=== PATIENT | male | born 1935 | race Caucasian/White ===

== ENCOUNTER → 2021-06-07 | Outpatient (REF) | payer OTHER, MEDICARE ==
[2021-06-07 18:29] LABS: MAGNESIUM LEVEL 1.9 MG/DL (1.8-2.4); PERCENT SATURATION 20.1 % (19.7-50.0)
== END ==
LOC: M LAB REF 16:42
PROVIDERS: ATTEND Internal Medicine Nephrology
DX: N18.32 Chronic kidney disease, stage 3b (principal); I12.9 Hypertensive chronic kidney disease with stage 1 through stage 4 chronic kidney disease, or unspecified chronic kidney disease; R60.0 Localized edema; D63.1 Anemia in chronic kidney disease

== ENCOUNTER → 2021-06-15 | Outpatient (CLI) | payer OTHER, MEDICARE ==
--- NOTE | 2021-06-15 11:28 | REP ---
INDICATION: CKD STAGE 3B, BPH. COMPARISON: None. TECHNIQUE: Real-time sonographic evaluation of the urinary bladder. Transvesical technique with Doppler. FINDINGS: The pre void urinary bladder volume calculation is 75 cc and the postvoid urinary bladder volume calculation is 15 cc. This renders a 20% postvoid residual. No gross abnormalities were identified. Uro jet phenomena was seen only on the left. IMPRESSION: As above <Electronically signed by Greg Ojeda > 06/15/21 [id number]
--- NOTE | 2021-06-15 11:39 | REP ---
INDICATION: CKD STAGE 3B, BPH. COMPARISON: None. TECHNIQUE: Real-time sonographic evaluation of the kidneys with Doppler FINDINGS: Multiple ultrasonographic images of the right kidney show the right kidney to measure 9 x 4.4 x 5.5 cm. The renal cortical echotexture is diffusely increased. There is renal cortical thinning there is a 14 x 10.8 x 18.1 cm sized anechoic structure which is arising from or abutting the superior pole and exhibits posterior wall enhancement and increased through transmission. There is poor corticomedullary differentiation. There is no hydronephrosis. There are no perinephric fluid collections. Multiple ultrasonographic images of the left kidney show the left kidney to measure 13.5 x 7.1 x 6.8 cm. The renal cortical echotexture is diffusely increased. There is renal cortical thinning there are 3 hypoechoic areas 1 in the superior pole measuring 1.7 cm another 1 in the superior pole measuring 8 mm and 1 in the interpolar region measuring 2.5 x 2.4 x 2.7 cm. There is poor corticomedullary differentiation. There is no hydronephrosis. There are no perinephric fluid collections. IMPRESSION: 1. Large cyst seemingly arising from the superior pole of the right kidney as described above. 2. Hypoechoic areas in the left kidney as described above. 3. Bilateral findings related to medical renal disease. 4. Pre and post gadolinium enhanced renal MRI is recommended for complete evaluation of the aforementioned hypoechoic potentially solid left renal findings and further evaluation of the large right-sided cystic area. <Electronically signed by Greg Ojeda > 06/15/21 [id number]
== END ==
LOC: M RAD 10:17
PROVIDERS: ATTEND Internal Medicine Nephrology
DX: R94.4 Abnormal results of kidney function studies (principal); N28.1 Cyst of kidney, acquired; N18.32 Chronic kidney disease, stage 3b; N40.1 Benign prostatic hyperplasia with lower urinary tract symptoms

== ENCOUNTER → 2021-11-19 | Outpatient (REF) | payer OTHER, MEDICARE | LOC: M LAB REF 16:57 | PROVIDERS: ATTEND Internal Medicine Nephrology | DX: D50.9 Iron deficiency anemia, unspecified (principal) ==

== ENCOUNTER → 2022-08-02 | Outpatient (REF) | payer BC, MEDICARE ==
[2022-08-02 19:47] LABS: PERCENT SATURATION 16.3 % (19.7-50.0)
[2022-08-02 20:43] LABS: WBC, URINE TNTC /hpf (0-3)
[2022-08-02 20:44] LABS: BACTERIA, URINE LARGE AMOUNT; SQUAMOUS EPITHELIAL CELL URINE SMALL AMOUNT /hpf (SMALL AMT); TRANSITIONAL EPI CELLS, URINE SMALL AMOUNT /hpf
[2022-08-02 20:45] LABS: HYALINE CAST, URINE NONE SEEN /lpf (0-1)
== END ==
LOC: M LAB REF 17:13
PROVIDERS: ATTEND Internal Medicine Nephrology
DX: N18.32 Chronic kidney disease, stage 3b (principal); R82.81 Pyuria

== ENCOUNTER 2022-08-22 12:04 | Outpatient (CLI) | payer BC, MEDICARE ==
[~2022-08-22] VITALS: Ht 182.9 cm; Wt 111.3 kg
[2022-08-22 12:00] VITALS: BP 164/74
[~2022-08-22 12:04] MED LIST: ALBUTEROL SULFATE 2.5 MG/0.5 ML INH NEB SOLN INH PRN; EPINEPHrine INJ 1 MG/ML 1ML AMP IM PRN; FERRIC CARBOXYMALTOSE INJ 750 MG in NS 250 ML (>50kg) IV ONE; NS 1,000 ML IV SCH; diphenhydrAMINE 50MG/ML VIAL IV PRN; methylPREDNISolone 125MG 2ML VIAL IV PRN
[2022-08-22] MEDS ORDERED: FERRIC CARBOXYMALTOSE INJ 750 MG in NS 250 ML (>50kg) IV ONE ×3 (12:30)
[2022-08-22] MEDS ORDERED: NS 1,000 ML IV SCH (12:30)
[2022-08-22] MEDS ORDERED: AMLO25TA PO (13:31)
[2022-08-22] MEDS ORDERED: VITA100T59 PO (13:31)
[2022-08-22] MEDS ORDERED: VITATAB73 PO (13:31)
[2022-08-22] MEDS ORDERED: vitamin D PO (13:31)
[2022-08-22] MEDS ORDERED: CARV20CA PO (13:31)
[2022-08-22] MEDS ORDERED: ATOR1TAB21 PO (13:31)
[2022-08-22] MEDS ORDERED: HUMA75IN2 SC (13:31)
[2022-08-22] MEDS ORDERED: OXYB10TA23 PO (13:31)
[2022-08-22] MEDS ORDERED: ASPI81CH33 PO (13:31)
[2022-08-22] MEDS ORDERED: FERR324T21 PO (13:31)
[2022-08-22 13:40] VITALS: BP 126/59
[2022-08-22 14:15] VITALS: BP 130/72
== END 2022-08-22 14:15 | disposition home or self-care (01) ==
LOC: M INFU 12:04
PROVIDERS: ATTEND Internal Medicine Nephrology
DX: E61.1 Iron deficiency (principal); Z88.6 Allergy status to analgesic agent
CPT/HCPCS: 96365; J1439

== ENCOUNTER 2022-08-29 12:00 | Outpatient (CLI) | payer BC, MEDICARE ==
[~2022-08-29] VITALS: Ht 177.8 cm; Wt 111.0 kg
[~2022-08-29 12:00] MED LIST changes: +AMLO25TA PO; +ASPI81CH33 PO; +ATOR1TAB21 PO; +CARV20CA PO; +FERR324T21 PO; -FERRIC CARBOXYMALTOSE INJ 750 MG in NS 250 ML (>50kg) IV ONE; +HUMA75IN2 SC; -NS 1,000 ML IV SCH; +OXYB10TA23 PO; +VITA100T59 PO; +VITATAB73 PO; +vitamin D PO
[2022-08-29] MEDS ORDERED: NS 1,000 ML IV SCH (12:30)
[2022-08-29] MEDS ORDERED: FERRIC CARBOXYMALTOSE INJ 750 MG in NS 250 ML (>50kg) IV ONE ×3 (12:30)
[2022-08-29 12:40] VITALS: BP 131/63
[2022-08-29 13:45] VITALS: BP 153/70
== END 2022-08-29 13:45 | disposition home or self-care (01) ==
LOC: M INFU 12:00
PROVIDERS: ATTEND Internal Medicine Nephrology
DX: E61.1 Iron deficiency (principal); Z88.6 Allergy status to analgesic agent
CPT/HCPCS: 96365; J1439

== ENCOUNTER → 2023-01-03 | Outpatient (CLI) | payer BC, MEDICARE ==
[~2023-01-03] MED LIST changes: -ALBUTEROL SULFATE 2.5 MG/0.5 ML INH NEB SOLN INH PRN; -EPINEPHrine INJ 1 MG/ML 1ML AMP IM PRN; +PROHANCE 279.3MG/ML 5ML VIAL As Ordered ONE; -diphenhydrAMINE 50MG/ML VIAL IV PRN; -methylPREDNISolone 125MG 2ML VIAL IV PRN
== END ==
LOC: M RAD 12:34
PROVIDERS: ATTEND Internal Medicine Nephrology
DX: N28.1 Cyst of kidney, acquired (principal); K76.89 Other specified diseases of liver; D41.01 Neoplasm of uncertain behavior of right kidney
CPT/HCPCS: 74183; A9576

== ENCOUNTER → 2024-03-29 | Outpatient (REF) | payer MEDICARE, BC ==
[~2024-03-29] MED LIST changes: -PROHANCE 279.3MG/ML 5ML VIAL As Ordered ONE
[2024-03-29 18:13] LABS: TOTAL PROTEIN,RANDOM URINE 39.3 MG/DL (0.0-14.0)
[2024-03-29 18:18] LABS: CREATININE,RANDOM URINE 66.4 MG/DL
== END ==
LOC: M LAB REF 16:54
PROVIDERS: ATTEND Internal Medicine Nephrology
DX: E11.22 Type 2 diabetes mellitus with diabetic chronic kidney disease (principal)